=== PATIENT | male | born 1970 | race Caucasian/White ===

== ENCOUNTER 2024-03-22 18:09 | Emergency (ER) | payer SELFPAY ==
[~2024-03-22] VITALS: Ht 167.6 cm; Wt 117.9 kg
[2024-03-22] MEDS: METOCLOPRAMIDE HCL 10 MG TABLET PO ONE (19:05)
[2024-03-22] MEDS: ACETAMINOPHEN 500 MG TABLET PO ONE (19:05)
[2024-03-22] MEDS ORDERED: CYCL5TAB PO (21:21)
[2024-03-22] MEDS ORDERED: NAPR-1009 PO (21:21)
[2024-03-22] MEDS ORDERED: KETOROLAC TROMETHAMINE 30 MG INJ ONE (21:23)
[2024-03-22] MEDS: KETOROLAC TROMETHAMINE 30 MG INJ IM ONE (21:24)
[2024-03-22 21:36] VITALS: BP 141/88; TEMP 98; O2SAT 98
== END 2024-03-22 21:37 | disposition home or self-care (01) ==
LOC: ER 18:09
DX: S06.0XAA Concussion with loss of consciousness status unknown, initial encounter (principal); S16.1XXA Strain of muscle, fascia and tendon at neck level, initial encounter; S80.01XA Contusion of right knee, initial encounter; M54.2 Cervicalgia; R11.10 Vomiting, unspecified; R03.0 Elevated blood-pressure reading, without diagnosis of hypertension; E66.9 Obesity, unspecified; Z68.41 Body mass index [BMI] 40.0-44.9, adult; W18.39XA Other fall on same level, initial encounter; Y93.89 Activity, other specified; Y92.89 Other specified places as the place of occurrence of the external cause; Y99.8 Other external cause status
CPT/HCPCS: 99285; 70450; 73560; 72125; 72128; 72131; 96372; J1885; A4606; A4663; A9150; J8597